=== PATIENT | male | born 1955 | race Caucasian/White ===

== ENCOUNTER → 2020-05-27 13:48 | Outpatient (CLI) | payer OTHER, SELFPAY ==
--- NOTE | 2020-05-27 | DI.ECHO.S_ITS ---
[facility] +---------+ : : [address] : : : : [id number] : : : : Phone: [phone]+ Echocardiogram Report + + :Name: TJ WILSON Study Date: 05/27/2020 Height: 69 in : :[facility] Weight: 160 lb : : Gender: Male BSA: 1.9 m2 : :: 1955 Age: 65 yrs BP: 114/82 mmHg: :Reason For Study: GENERAL ADULT MEDICAL EXAMINATION : :Ordering Physician: [place], : :ONUR Performed By: Tammy Dejesus : :Referring: ONUR GOFF : + + Interpretation Summary Normal sinus rhythm. Normal LV size, wall thickness, wall motion and LV systolic function. EF is 50-55% Severe LA enlargement; mild RA enlargement. No significant valvular abnormalities. No prior study available for comparison. Procedure: A two-dimensional transthoracic echocardiogram with color flow and Doppler was performed. The study quality was technically adequate. There is no prior echocardiogram noted for this patient. Left Ventricle: The left ventricle is normal in size and wall thickness. Proximal septal thickening is noted. The ejection fraction is estimated to be 50-55%. Diastolic parameters suggest a relaxation abnormality of the left ventricle, consistent with probable normal filling pressures. Right Ventricle: The right ventricle is normal in size, thickness and function. The right ventricular systolic function is normal. Atria: The left atrium is severely dilated. The right atrium is mildly dilated. There is no Doppler evidence for an interatrial shunt. Mitral Valve: The mitral valve is normal in structure and function. There is trace mitral regurgitation. Aortic Valve: The aortic valve opens well. The aortic valve is trileaflet. There is no aortic valve stenosis. There is trace aortic regurgitation. Tricuspid Valve: The tricuspid valve is normal in structure and function. Pulmonary artery pressures cannot be estimated because of the lack of a measurable TR jet velocity but the IVC suggests a CVP of around 3 mmHg. There is trace tricuspid regurgitation. Pulmonic Valve: The pulmonic valve leaflets are thin and pliable; valve motion is normal. There is trace pulmonic regurgitation. Great Vessels: The aortic root is normal size. The ascending aorta is mildly enlarged. The IVC is of normal diameter and collapses greater than 50% with a sniff. This suggests a low right atrial pressure of 3 mm Hg. Pericardium/ Pleura There is no pericardial effusion. There is no pleural effusion. MMode/2D Measurements & Calculations LVIDd: 5.2 cm LVOT diam: 2.1 cm LVIDs: 3.5 cm Ao root diam: 3.8 cm FS: 33.0 % asc Aorta Diam: 3.9 cm EPSS: 0.66 cm IVSd: 0.85 cm LVPWd: 0.81 cm LV huber. diameter/BSA (cm/m^2): 2.8 LV sys. diameter/BSA (cm/m^2): 1.9 LA A2 area: 23.8 cm2 RA long axis: 5.7 cm LA A4 area: 26.9 cm2 RA area: 21.3 cm2 LA length (vol): 5.7 cm RA vol: 67.3 ml LA vol: 96.0 ml RA : 35.8 ml/m2 LA vol index: 51.1 ml/m2 IVC diam: 1.8 cm RVD1 (basal): 4.1 cm TAPSE: 1.8 cm Doppler Measurements & Calculations Ao V2 max: 105.6 cm/sec LVOT Max Nando: 103.0 cm/sec Ao V2 mean: 68.0 cm/sec LV V1 max P.2 mmHg Ao max P.5 mmHg LV V1 VTI: 21.9 cm Ao mean P.1 mmHg JESSICA(I,D): 3.9 cm2 Ao V2 VTI: 19.1 cm JESSICA(V,D): 3.3 cm2 sev ratio: 1.1 JESSICA indexed to BSA (cm^2/m^2): 2.1 MV E max nando: 52.8 cm/sec PA V2 max: 60.3 cm/sec MV A max nando: 69.4 cm/sec PA V2 mean: 42.1 cm/sec MV E/A: 0.76 PA mean P.80 mmHg Med Peak E' Nando: 7.2 cm/sec PA pr(Accel): 15.6 mmHg E/E' med: 7.4 Lat Peak E' Nando: 8.6 cm/sec E/E' lat: 6.2 E/e' average: 6.8 MV dec time: 0.20 sec SV([facility]): 74.4 ml Electronically signed by: Johanna Powers M.D. on Reading Physician:05/28/2020 12:57 AM
== END ==
PROVIDERS: PCP Physician Assistant; Referring Provider Physician Assistant; Visit Provider Physician Assistant
DX: Z00.00 Encounter for general adult medical examination without abnormal findings (principal); I77.89 Other specified disorders of arteries and arterioles
CPT/HCPCS: 93306